=== PATIENT | female | born 1950 | race Caucasian/White ===

== ENCOUNTER 2024-08-26 13:32 | Emergency (ER) | payer MEDICARE, OTHER, SELFPAY ==
--- NOTE | 2024-08-26 14:03 | ED.GENMED ---
ED Provider Triage
<Vini Cristobal PA-C - Last Filed: 08/26/24 14:06>
-
Patient seen by provider in Triage?: Seen in Triage
Attestation: A medical screening examination has been initiated by a qualified medical provider. Based on the assessment performed at this time, it has been determined that an emergent medical condition may exist and the patient has been informed
that further medical evaluation and possible additional diagnostic testing may be needed.
HPI: 73-year-old female presenting to the emergency department for evaluation of left flank pain and nausea since . Diagnosed with a urinary tract infection started on IV antibiotics. Taking the antibiotics without relief. This morning
pain got acutely worse within the left flank. No urinary symptoms but states having a very difficult time tolerating p.o. She appears uncomfortable. Labs and CT ordered. Disposition pending.
GENERAL: Alert , in no apparent distress
EYE: No visual abnormalities.
NECK: Trachea midline
ENT: No visible abnormalities.
LUNGS: No acute respiratory distress
NEUROLOGICAL: Alert and oriented
SKIN: Skin intact. No visible changes.
MUSCULOSKELETAL: Moving extremities normally
PSYCH: Normal and appropriate interaction.
This is a medical evaluation conducted in person to initiate diagnostic evaluation and provide initial therapeutics. Please see further documentation by the treating clinician.
History of Present Illness
<Vini Cristobal PA-C - Last Filed: 08/26/24 14:06>
General
Chief Complaint: Abdominal Symptoms
Time Seen by Provider: 08/26/24 17:24
<Ana Rosa Canales PA-C - Last Filed: 08/27/24 00:27>
General
Source: patient
Exam Limitations: none
Nursing documentation reviewed up to this point in time: agreed with
History of Present Illness
History of Present Illness:
pt is a 73 y/o F
h/o COPD ex smoker, no O2, htn, hld, SD
had urinary frequency/urgency and went to 2 days ago and was diagnosed with UTI, started on macrobid and pyridium
she has taken 4 doses of macrobid
this mornign had LLQ pain
it was not radiating to L back
worse with bending over
no fever/chills, vomiting, diarrhea
never had kidney stone
Past History
<Vini Cristobal PA-C - Last Filed: 08/26/24 14:06>
Past History
ED Past Medical History: COPD, HTN, Hypercholesterolemia and SD
ED Past Surgical History: Gynecological and Orthopedic
Social History
Tobacco: Former smoker
Alcohol: None
Drug: None
Personal:
Living: with family
Review of Systems
<Ana Rosa Canales PA-C - Last Filed: 08/27/24 00:27>
Review of Systems
Allergies reviewed?: Yes
All Other Systems: Not applicable
Phy Exam
<MARLI Toney Last Filed: 08/27/24 00:27>
Physical Exam
Physical Exam:
GENERAL: Alert, no distress
Neck: supple
CARDIAC: Regular rate and rhythm .
LUNGS: pink puffer, occ pursed lips but Clear breath sounds bilaterally, no acute respiratory distress, no wheezes/rales/rhonchi
ABDOMEN: Soft, normal bowel sounds, nondistended, very mild LLQ tenderness, no guarding, no rebound, neg murillo's
no CVAT
NEUROLOGICAL: Alert and oriented, no focal neuro deficits
SKIN: Warm and dry, skin intact.
PSYCH: Normal and appropriate interaction.
Course
<MARLI Gimenez Last Filed: 08/26/24 14:06>
Orders/Labs/Results
Orders:
Orders
08/26/24 14:05
CT Abd/pelvis W Iv Cont Urgent
Comment:
Reason For Exam: left flank pain, nausea, UTI
08/26/24 14:13
Complete Blood Count/With Diff Urgent
Comprehensive Metabolic Panel Urgent
Urinalysis Reflex To Culture Urgent
Date Specimen was Collected: 08/26/24
Time Specimen was Collected: 14:08
Urine Microscopic Reflex Cult Urgent
Urine Culture Urgent
ARASH Source: U
Specimen Description:
Date Specimen was Collected: 08/26/24
Time Specimen was Collected: 14:08
08/26/24 18:08
Acetaminophen [Tylenol] 650 mg PO NOW STA
CefTRIAXone [Rocephin] 1,000 mg IV NOW STA
Abnormal Lab Results
08/26/24
14:13
WBC 11.6 H 10^3/uL
(4.8-10.8)
RBC 4.14 L 10^6/uL
(4.20-5.40)
MCH 31.6 H pg
(27.0-31.0)
MCHC 32.7 L g/dL
(33.0-37.0)
MPV 10.8 H fL
(7.4-10.4)
Absolute Neuts (auto) 9.0 H 10^3/uL
(1.4-6.5)
Absolute Lymphs (auto) 0.7 L 10^3/uL
(1.2-3.4)
Absolute Monos (auto) 1.1 H 10^3/uL
(0.1-0.6)
Neutrophils % 77.8 H %
(42.2-75.2)
Lymphocytes % 6.4 L %
(20.5-51.1)
Monocytes % 9.5 H %
(1.7-9.3)
BUN 21 H mg/dl
(7-17)
Creatinine 1.1 H mg/dL
(0.6-1.0)
Glucose 117 H mg/dl
(70-99)
Urine Ketones 1+ A
(Negative)
Ur Occult Blood Reflex 1+ A
(Negative)
Urine Nitrite (Reflex) Positive A
(Negative)
Urine Bilirubin 3+ A
(Negative)
Urine Urobilinogen 4+ A
(Neg - 1+)
Urine RBC 7-10 A /HPF
(0-2)
Urine Bacteria (Reflex) Few A
(Negative)
Urine Albumin (Reflex) 3+ A
(Neg - Trace)
08/26/24 14:13
08/26/24 14:13
Vital Signs
Initial and Last Documented VS:
Initial Vital Signs
Temp Pulse Resp BP Pulse Ox
36.6 C 78 16 126/74 98
08/26/24 14:04 08/26/24 14:04 08/26/24 14:04 08/26/24 14:04 08/26/24 14:04
Last Documented Vital Signs
Temp Pulse Resp BP Pulse Ox
36.6 C 73 17 120/68 94
08/26/24 14:04 08/26/24 18:36 08/26/24 18:36 08/26/24 18:36 08/26/24 18:36
Ammonlt;Ana Rosa Canales PA-C - Last Filed: 08/27/24 00:27>
Orders/Labs/Results
Orders:
Orders
08/26/24 14:05
CT Abd/pelvis W Iv Cont Urgent
Comment:
Reason For Exam: left flank pain, nausea, UTI
08/26/24 14:13
Complete Blood Count/With Diff Urgent
Comprehensive Metabolic Panel Urgent
Urinalysis Reflex To Culture Urgent
Date Specimen was Collected: 08/26/24
Time Specimen was Collected: 14:08
Urine Microscopic Reflex Cult Urgent
Urine Culture Urgent
ARASH Source: U
Specimen Description:
Date Specimen was Collected: 08/26/24
Time Specimen was Collected: 14:08
08/26/24 18:08
Acetaminophen [Tylenol] 650 mg PO NOW STA
CefTRIAXone [Rocephin] 1,000 mg IV NOW STA
Abnormal Lab Results
08/26/24
14:13
WBC 11.6 H 10^3/uL
(4.8-10.8)
RBC 4.14 L 10^6/uL
(4.20-5.40)
MCH 31.6 H pg
(27.0-31.0)
MCHC 32.7 L g/dL
(33.0-37.0)
MPV 10.8 H fL
(7.4-10.4)
Absolute Neuts (auto) 9.0 H 10^3/uL
(1.4-6.5)
Absolute Lymphs (auto) 0.7 L 10^3/uL
(1.2-3.4)
Absolute Monos (auto) 1.1 H 10^3/uL
(0.1-0.6)
Neutrophils % 77.8 H %
(42.2-75.2)
Lymphocytes % 6.4 L %
(20.5-51.1)
Monocytes % 9.5 H %
(1.7-9.3)
BUN 21 H mg/dl
(7-17)
Creatinine 1.1 H mg/dL
(0.6-1.0)
Glucose 117 H mg/dl
(70-99)
Urine Ketones 1+ A
(Negative)
Ur Occult Blood Reflex 1+ A
(Negative)
Urine Nitrite (Reflex) Positive A
(Negative)
Urine Bilirubin 3+ A
(Negative)
Urine Urobilinogen 4+ A
(Neg - 1+)
Urine RBC 7-10 A /HPF
(0-2)
Urine Bacteria (Reflex) Few A
(Negative)
Urine Albumin (Reflex) 3+ A
(Neg - Trace)
08/26/24 14:13
08/26/24 14:13
Vital Signs
Initial and Last Documented VS:
Initial Vital Signs
Temp Pulse Resp BP Pulse Ox
36.6 C 78 16 126/74 98
08/26/24 14:04 08/26/24 14:04 08/26/24 14:04 08/26/24 14:04 08/26/24 14:04
Last Documented Vital Signs
Temp Pulse Resp BP Pulse Ox
36.6 C 73 17 120/68 94
08/26/24 14:04 08/26/24 18:36 08/26/24 18:36 08/26/24 18:36 08/26/24 18:36
<Ana Rosa Canales PA-C - Last Filed: 08/27/24 00:27>
MDM/Problems Addressed
Differential Diagnosis Includes:
failed ABX, kidney stone, pyelo, divertic, constipation
MDM/Problems Addressed:
73 y/o F
uti sxs and on bx 4 doses so far
had LLQ pain this morning worse with bending and walking
not radiating to back
no fever/chills/vomting
well appearing
COPD history but no wheezing
mild LLQ tendenrss, some active bowel sounds
wbc 11.2
left shift
cr 1.1 which is about baseline
ua positive but pt also on pyridium
ctap no findings of obstructive uropathy, no pyelo, no divertic
mod stool burden
probably cause of her pain
but will advance her abx inc ase the macrobid isn't covering and give strict return precautions
<Ana Rosa Canales PA-C - Last Filed: 08/27/24 00:27>
*Critical Care Note
Total Time (30-74mins, 75-104mins- exclusive of procedures): Not Applicable
ED Attending Note
<Vini Cristobal PA-C - Last Filed: 08/26/24 14:06>
-
Portions of this chart may have been created with voice recognition software.� Occasional wrong word or��sound alike� substitutions may have occurred due to the inherent limitations of voice recognition software.
Discharge Plan
Departure
Patient Disposition: Home (Routine Discharge)
Date of Disposition: 08/26/24
Time of Disposition: 18:49
Patient with high blood pressure during this ER visit?: No
Condition: Fair
Discharge Problem:
UTI (urinary tract infection), Abdominal pain, Constipation
Instructions: Urinary tract infections in adults
Prescriptions:
New
cefdinir 300 mg capsule
300 mg PO BID Qty: 14 0RF
No Action
carvedilol 6.25 mg Tablet
6.25 mg PO BID
aspirin 81 mg Tablet,Delayed Release (Dr/Ec)
81 mg PO DAILY
lisinopril 5 mg Tablet
5 mg PO BID
albuterol sulfate 90 mcg/actuation Hfa Aerosol Inhaler
2 puff INHALATION R Q6HPRN PRN (Reason: sob)
nicotine 7 mg/24 hr Patch 24 Hour
1 patch TRANSDERMAL Q24H
Patient Comments:
08/10/2023, patient currently wearing a patch on her right upper arm.
rosuvastatin 20 mg Tablet
20 mg PO QPM
cholecalciferol (vitamin D3) 25 mcg (1,000 unit) Tablet
25 mcg PO QPM
fluticasone furoate-vilanterol [Breo Ellipta] 100-25 mcg/dose Blister With Device
1 inh INHALATION R DAILY
prednisone 20 mg Tablet
40 mg PO DAILY Qty: 4 0RF
oseltamivir 30 mg Capsule
30 mg PO BID Qty: 6 0RF
ipratropium-albuterol 0.5 mg-3 mg(2.5 mg base)/3 mL solution for nebulization
3 ml inhalation QID PRN (Reason: shortness of breath or wheezing) Qty: 90 0RF
Referrals:
Indigo Haddad, [Family Provider] - Follow up in 2-3 days
Activity Restrictions/Additional Instructions:
Y your urine does appear infected however the Pyridium can make it appear this way. Given the fact that you are having pain we will change her antibiotic over to something little bit stronger cefdinir twice a day which you can start tomorrow for 7
days. Take a probiotic while you are on this medication. Your CAT scan did not show any abnormalities but you do have a moderate amount of stool in your colon and gas and stool can certainly cause left lower quadrant pain. You do not appear to
have signs of a kidney infection on your CAT scan or a kidney stone. You may want to consider taking a dose of MiraLAX to just help empty your colon in case stool and gas is the culprit. But for now you can also just take Tylenol 2 times a day for
pain. Drink fluids to stay hydrated. Take the antibiotics and make sure you see your doctor next week. Return for any concerns
Interventions
Interventions:
*Risk Screen - Suicide Last Done: 08/26/24 14:04
*General Assessment Last Done: 08/26/24 18:44
*Neglect/Abuse Screening Last Done: 08/26/24 14:04
*ED COVID-19 Vaccine History Last Done: 08/26/24 18:44
*Nursing Disposition Last Done: 08/26/24 19:12
UD-Efjiji-Wvebcgkmyn Assessment Last Done: 08/26/24 18:36
Discharge Date and Time
Discharge Date/Time: 08/26/24 19:12
Print Language: SERBIAN
[2024-08-26 14:04] VITALS: BP 126/74
[2024-08-26 14:38] LABS: % Basophils 0.3 % (0-2); % Eosinophils 5.8 % (0-6); % Immature Granulocytes 0.2 % (0-0.5); % Lymphocytes 6.4 % (20.5-51.1); % Monocytes 9.5 % (1.7-9.3); % Neutrophils 77.8 % (42.2-75.2); Absolute Eosinophils 0.7 10^3/uL (0-0.7); Absolute Lymphocytes 0.7 10^3/uL (1.2-3.4); Absolute Monocytes 1.1 10^3/uL (0.1-0.6); Hematocrit 40.1 % (37.0-47.0); Hemoglobin 13.1 g/dL (12.0-16.0); Mean Corp Hgb Conc. 32.7 g/dL (33.0-37.0); Mean Corpuscular Hgb 31.6 pg (27.0-31.0); Mean Corpuscular Volume 96.9 fL (81.0-99.0); Mean Platelet Volume 10.8 fL (7.4-10.4); Nucleated Red Blood Cells % 0 %; Platelet Count 219 10^3/uL (130-400); Red Blood Cell Count 4.14 10^6/uL (4.20-5.40); Red Cell Dist. Width 12.5 % (11.5-14.5); White Blood Cell Count 11.6 10^3/uL (4.8-10.8)
[2024-08-26 14:40] LABS: Urine Albumin 3+ (Neg - Trace); Urine Bilirubin 3+ (Negative); Urine Character Clear (Clear); Urine Glucose Negative (Negative); Urine Ketone 1+ (Negative); Urine Leukocyte Negative (Negative); Urine Nitrite Positive (Negative); Urine Occult Blood 1+ (Negative); Urine Urobilinogen 4+ (Neg - 1+)
[2024-08-26 14:42] LABS: Urine Color Amber
[2024-08-26 14:50] LABS: ALT (SGPT) 21 U/L (0-35); AST (SGOT) 23 U/L (14-36); Albumin 4.1 g/dl (3.5-5.0); Alkaline Phosphatase 84 U/L (38-126); Blood Urea Nitrogen 21 mg/dl (7-17); Calcium 9.4 mg/dl (8.4-10.2); Carbon Dioxide 27 mmol/L (22-30); Chloride 100 mmol/L (98-107); Glucose 117 mg/dl (70-99); Potassium 4.3 mmol/L (3.5-5.1); Sodium 136 mmol/L (135-145); Total Bilirubin 1.1 mg/dl (0.2-1.3); Total Protein 6.5 g/dl (6.3-8.2)
[2024-08-26 14:55] LABS: Urine Amorphous Seen
[2024-08-26 14:57] LABS: Urine Bacteria Few (Negative)
[2024-08-26 16:30] VITALS: BP 122/77
[2024-08-26 18:36] VITALS: BP 120/68; BMI 18.6
[2024-08-26] MEDS: ROCEPHIN 1000 MG IV (18:40)
[2024-08-26] MEDS: TYLENOL 650 MG PO (18:40)
== END 2024-08-26 19:12 | disposition home or self-care (01) ==
LOC: EMR 13:32
PROVIDERS: Physician Assistant Medical; EMERGENCY PHYSICIAN Emergency Medicine; FAMILY PHYSICIAN Internal Medicine
DX: N39.0 Urinary tract infection, site not specified (principal); R10.32 Left lower quadrant pain; R11.0 Nausea; K59.00 Constipation, unspecified; I10 Essential (primary) hypertension; E78.00 Pure hypercholesterolemia, unspecified; J44.9 Chronic obstructive pulmonary disease, unspecified; I25.2 Old myocardial infarction; Z87.891 Personal history of nicotine dependence; Z79.82 Long term (current) use of aspirin
CPT/HCPCS: 99284; 96374; 74177; 80053; 81003; 81015; 85025; 87086; Q9967